=== PATIENT | male | born 1995 | race Caucasian/White ===

== ENCOUNTER 2016-08-19 20:42 | Emergency (ER) | payer SELFPAY ==
--- NOTE | 2016-08-20 05:49 | ER ---
ADMIT: 08/19/2016 RM/LOC: ER [facility] MR#: [id number] [address] [id number] MIKE MAXWELL TURNER [address] [place] [address] Emergency Room Report SEX: M AGE: 21 : 1995 DATE: 08/19/2016 The patient is a 21-year-old male, complaining of acute onset of headache, cough, fevers, chills, sore throat, and body aches on Saturday. Did not receive flu vaccine. Exam remarkable for nontoxic, febrile male. Otherwise, no acute distress and otherwise unremarkable exam. Recommended Tamiflu 75 mg b.i.d. x5 days, first dose in department. Acetaminophen 1 g q.i.d. p.r.n., first dose in department. Motrin 800 mg t.i.d. p.r.n., first dose in department. Tussionex 5 mL p.o. in department and guaifenesin with codeine at 10 mL q.i.d. p.r.n., dispensed 120 mL. No work until feeling better. Follow up Dr. Dhillon or Dr. Holbrook as needed. Carlos Johnston MD/ dcl JOB #: [id number] CC: Carlos Johnston MD, Attending Physician Ron Holbrook MD, Family Physician Kirsten Dhillon MD
== END 2016-08-19 21:15 | disposition home or self-care (01) ==
LOC: ER 20:42
DX: J11.1 Influenza due to unidentified influenza virus with other respiratory manifestations (principal)